=== PATIENT | male | born 2000 | race Caucasian/White ===

== ENCOUNTER 2022-04-13 00:27 | Emergency (ER) | payer SELFPAY ==
[~2022-04-13] VITALS: Ht 172.7 cm; Wt 59.1 kg
[2022-04-13 01:06] VITALS: BP 126/88
[2022-04-13] MEDS ORDERED: TETanus/Pertussis (Acell)/Diphther VAC/PF (Tdap-Adult) 0.5ml syringe IMVAC ONE (01:25)
== END 2022-04-13 02:03 | disposition home or self-care (01) ==
LOC: ER 00:27
DX: S50.812A Abrasion of left forearm, initial encounter (principal); F10.129 Alcohol abuse with intoxication, unspecified; Z02.89 Encounter for other administrative examinations; X58.XXXA Exposure to other specified factors, initial encounter; Y93.89 Activity, other specified; Y92.89 Other specified places as the place of occurrence of the external cause; Y99.8 Other external cause status; Y90.9 Presence of alcohol in blood, level not specified
CPT/HCPCS: 90471; 90715; 99283; A6258; A6449